=== PATIENT | male | born 1955 | race Native Hawaiian/Other Pacific Islander ===

== ENCOUNTER 2021-10-18 09:30 | Emergency (ER) | payer OTHER ==
[~2021-10-18] VITALS: Ht 172.7 cm; Wt 112.5 kg
[2021-10-18 09:32] VITALS: TEMP 97.1
[2021-10-18 10:10] LABS: PLATELET COUNT 220 K/uL (142-355)
[2021-10-18 10:18] LABS: PARTIAL THROMBOPLASTIN TIME 25.6 SECONDS (24.5-33.6); POTASSIUM 3.7 mmol/L (3.6-5.2)
[2021-10-18 13:57] VITALS: BP 136/84
== END 2021-10-18 13:57 | disposition home or self-care (01) ==
LOC: ED 09:30
PROVIDERS: Emergency Medicine
DX: I50.9 Heart failure, unspecified (principal)
CPT/HCPCS: 36415; 80053; 83880; 84484; 85027; 85610; 85730; 93005; 96374; 96375; 99284; J1940

== ENCOUNTER 2022-07-24 11:42 | Emergency (ER) | payer OTHER ==
[~2022-07-24] VITALS: Ht 172.7 cm; Wt 109.8 kg
[2022-07-24 12:08] LABS: PLATELET COUNT 226 K/uL (142-355)
[2022-07-24 12:26] LABS: PARTIAL THROMBOPLASTIN TIME 22.3 SECONDS (24.5-33.6)
[2022-07-24 12:36] LABS: POTASSIUM 3.7 mmol/L (3.6-5.2)
[2022-07-24 13:40] VITALS: BP 127/92; TEMP 97.2
== END 2022-07-24 13:45 | disposition left against medical advice (07) ==
LOC: ED 11:42
PROVIDERS: Emergency Medicine Emergency Medical Services
DX: I50.9 Heart failure, unspecified (principal); J18.9 Pneumonia, unspecified organism; Z53.29 Procedure and treatment not carried out because of patient's decision for other reasons; Z79.899 Other long term (current) drug therapy
CPT/HCPCS: 36415; 36600; 80053; 82550; 82805; 83735; 83880; 84484; 85027; 85610; 85730; 87040; 93005; 96365; 96375; 99284; J0696; J3490

== ENCOUNTER 2022-08-01 12:55 | Outpatient (CLI) | payer OTHER | END 2022-08-01 20:58 | disposition home or self-care (01) | LOC: RESP 12:55 | PROVIDERS: ATTEND Registered Nurse | DX: I50.9 Heart failure, unspecified (principal) ==

== ENCOUNTER 2022-08-07 14:56 | Outpatient (CLI) | payer OTHER | END 2022-08-07 19:29 | disposition home or self-care (01) | LOC: RAD 14:56 | PROVIDERS: ATTEND Nurse Practitioner Family | DX: M25.512 Pain in left shoulder (principal); M25.511 Pain in right shoulder ==

== ENCOUNTER 2022-10-25 12:01 | Outpatient (CLI) | payer OTHER | END 2022-10-25 18:55 | disposition home or self-care (01) | LOC: RAD 12:01 | PROVIDERS: ATTEND Registered Nurse | DX: J18.9 Pneumonia, unspecified organism (principal) ==

== ENCOUNTER 2022-11-14 14:25 | Emergency (ER) | payer OTHER ==
[~2022-11-14] VITALS: Ht 177.8 cm; Wt 104.3 kg
[2022-11-14 14:30] VITALS: BP 119/64; TEMP 97.8
== END 2022-11-14 16:46 | disposition home or self-care (01) ==
LOC: ED 14:25
DX: Z53.21 Procedure and treatment not carried out due to patient leaving prior to being seen by health care provider (principal)
CPT/HCPCS: 99281

== ENCOUNTER 2023-01-15 13:33 | Emergency (ER) | payer OTHER ==
[~2023-01-15] VITALS: Ht 177.8 cm; Wt 108.9 kg
[2023-01-15 13:34] VITALS: TEMP 97.8
[2023-01-15 15:11] LABS: POTASSIUM 3.6 mmol/L (3.6-5.2)
[2023-01-15 15:16] LABS: PLATELET COUNT 188 K/uL (142-355)
[2023-01-15 15:30] VITALS: BP 111/82
== END 2023-01-15 15:30 | disposition left against medical advice (07) ==
LOC: ED 13:33
PROVIDERS: Family Medicine
DX: I47.1 Supraventricular tachycardia (principal); J84.112 Idiopathic pulmonary fibrosis; I10 Essential (primary) hypertension
CPT/HCPCS: 80053; 80307; 81000; 84443; 84484; 85027; 93005; 96361; 96374; 96375; 99285; J0153; J0282; J3490